=== PATIENT | male | born 1990 | race Caucasian/White ===

== ENCOUNTER 2017-02-06 16:11 | Emergency (ER) | payer SELFPAY ==
[2017-02-06] MEDS ORDERED: Diphtheria,Pertussis(Acell),Tetanus Vaccine 0.5 ML SDV IM ONE (16:20)
[2017-02-06] MEDS ORDERED: ceFAZolin 1 GM in Premix Bag 1 BAG IV ONE (16:21)
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
[2017-02-06] MEDS ORDERED: Iopamidol 612 MG/ML 150 ML Bottle IVPUSH ONE (16:26)
[2017-02-06] MEDS ORDERED: Sodium Chloride 0.9% 1,000 ML IV SCH (16:30)
[2017-02-06] MEDS ORDERED: Lidocaine 1% 10 ML MDV INJECT ONE (16:43)
[2017-02-06] MEDS ORDERED: Ketorolac 30 MG/ML SDV IVPUSH SCH (16:45)
[2017-02-06] MEDS ORDERED: Ketorolac 30 MG/ML SDV IVPUSH ONE (16:56)
[2017-02-06] MEDS: Sodium Chloride 0.9% 10 ML Syringe FLUSH PRN ×2 (17:03→17:04)
[2017-02-06] MEDS ORDERED: HYDROmorphone 1 MG/ML Syringe IVPUSH ONE (17:11)
[2017-02-06 17:21] VITALS: BP 121/94
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
== END 2017-02-06 18:14 | disposition home or self-care (01) ==
LOC: JD.ED 16:11
DX: S21.112A Laceration without foreign body of left front wall of thorax without penetration into thoracic cavity, initial encounter (principal); S31.119A Laceration without foreign body of abdominal wall, unspecified quadrant without penetration into peritoneal cavity, initial encounter; Z23 Encounter for immunization; Z88.1 Allergy status to other antibiotic agents; X99.1XXA Assault by knife, initial encounter
CPT/HCPCS: 12001; 36415; 71260; 74177; 80053; 85025; 86900; 86901; 90471; 90715; 96361; 96365; 96375; 99285; J0690; J1170; J1885; J7040; J7050; Q9967; 99284-25